=== PATIENT | female | born 1955 ===

== ENCOUNTER 2023-11-17 17:44 | Emergency (ER) | payer MEDICARE | END 2023-11-17 19:35 | disposition home or self-care (01) | LOC: MADERS 17:44 | DX: S63.641A Sprain of metacarpophalangeal joint of right thumb, initial encounter (principal); S63.642A Sprain of metacarpophalangeal joint of left thumb, initial encounter; S46.911A Strain of unspecified muscle, fascia and tendon at shoulder and upper arm level, right arm, initial encounter; S60.512A Abrasion of left hand, initial encounter; S60.511A Abrasion of right hand, initial encounter; M19.042 Primary osteoarthritis, left hand; M19.041 Primary osteoarthritis, right hand; I10 Essential (primary) hypertension; V89.2XXA Person injured in unspecified motor-vehicle accident, traffic, initial encounter ==